=== PATIENT | female | born 1960 | race African-American/Black ===

== ENCOUNTER 2018-01-21 09:53 | Inpatient (IN) | payer MEDICARE, MEDICAID ==
[2018-01-21] VITALS (39 sets, daily range): BP systolic 93–187; BP diastolic 58–106
[~2018-01-21] VITALS: Ht 167.6 cm; Wt 79.4 kg
[~2018-01-21 09:53] MED LIST: ZOLOF; [UNRECOGNIZED DRUG - OTHER]; [UNRECOGNIZED DRUG - OTHER]; norvas
[2018-01-21] MEDS ORDERED: AZITHROMYCIN 500 MG in DEXT 5% WATER 250 ML IV STA (10:09)
[2018-01-21] MEDS ORDERED: CEFTRIAXONE 1 G PREMIX 50 ML IV ONE (10:15)
[2018-01-21] MEDS ORDERED: SODIUM CHLORIDE 0.9% 1,000 ML IV ONE ×2 (10:15)
[2018-01-21] MEDS ORDERED: AZITHROMYCIN 500 MG in SODIUM CHLORIDE 0.9% 250 ML IV STA (10:47)
[2018-01-21 10:50] LABS: HEMATOCRIT. 42.7 % (36.0-48.0); HEMOGLOBIN. 13.4 g/dL (12.0-16.0); MEAN CORPUSCULAR VOLUME 95.8 fL (81.0-99.0); MEAN PLATELET VOLUME 10.4 fl (7.4-10.4); PLATELET 229 x1000/uL (130-400); RED BLOOD CELL COUNT 4.46 mill/uL (4.2-5.4); RED CELL DISTRIBUTION WIDTH 13.9 % (11.6-14.6)
[2018-01-21 11:28] LABS: D-DIMER 3.36 mg/L FEU (<0.50); INR 1.2; PLATELET ESTIMATE NORMAL; PROTHROMBIN TIME 12.1 sec (9.4-11.6)
[2018-01-21 11:32] LABS: CHLORIDE 101 mEq/L (98-107)
[2018-01-21] MEDS ORDERED: INSULIN REGULAR (DRIP) 100 UNITS in SODIUM CHLORIDE 0.9% 99 ML IV ONE ×2 (11:39→12:00)
[2018-01-21 11:40] LABS: HCG SCREEN NEGATIVE
[2018-01-21 12:32] LABS: CHLORIDE 110 mEq/L (98-107)
[2018-01-21 14:25] LABS: CHLORIDE 111 mEq/L (98-107)
[2018-01-21] MEDS ORDERED: IPRATROPIUM/ALBUTEROL 0.5-3(2.5)MG/3ML NEB INH PRN (15:00)
[2018-01-21] MEDS ORDERED: DEXTROSE 50% WATER 50ML SYRINGE IV PRN ×2 (15:00)
[2018-01-21] MEDS ORDERED: SODIUM BICARBONATE 8.4% 1 MEQ/ML 50ML SYR IV SCH (15:00)
[2018-01-21] MEDS: BLOOD SUGAR DIAGNOSTIC STRIP TEST SCH ×9 (15:11→23:57)
[2018-01-21] MEDS: INSULIN REGULAR (DRIP) 100 UNITS in SODIUM CHLORIDE 0.9% 99 ML IV SCH (15:13)
[2018-01-21] MEDS: SODIUM CHLORIDE 0.9% 1,000 ML IV SCH (15:44)
[2018-01-21] MEDS: ENOXAPARIN 40MG/0.4ML SYR SUBCUT SCH (15:45)
[2018-01-21] MEDS ORDERED: LEVOFLOXACIN 500MG PREMIX 100 ML IV SCH (16:00)
[2018-01-21 16:24] LABS: CLARITY URINE CLOUDY (CLEAR); COLOR URINE YELLOW (YELLOW); KETONES URINE 4+ (NEGATIVE); LEUKOCYTE ESTERASE URINE NEGATIVE (NEGATIVE); NITRITE URINE NEGATIVE (NEGATIVE); OCCULT BLOOD URINE 1+ (NEGATIVE); PROTEIN URINE 2+ (NEGATIVE); SPECIFIC GRAVITY URINE 1.021 (1.005-1.030); UROBILINOGEN URINE 0.2 E.U./dL (0.2-1.0)
[2018-01-21 16:41] LABS: *AMPHETAMINES SCREEN URINE NEGATIVE (NEGATIVE); *BARBITURATES SCREEN URINE NEGATIVE (NEGATIVE); *BENZODIAZEPINES SCREEN URINE NEGATIVE (NEGATIVE); *COCAINE SCREEN URINE NEGATIVE (NEGATIVE); METHADONE URINE SCREEN NEGATIVE (NEGATIVE); OPIATES URINE SCREEN NEGATIVE (NEGATIVE)
[2018-01-21 16:42] LABS: CANNABINOID URINE SCREEN NEGATIVE (NEGATIVE); PHENCYCLIDINE URINE SCREEN NEGATIVE (NEGATIVE)
[2018-01-21 17:02] LABS: BG CARBOXYHEMOGLOBIN 0.6 % (0.5-1.5); BG DEOXYHEMOGLOBIN 9.7 % (0.0-5.0); BG FRACTION INSPIRED OXYGEN 21; BG HCO3 ACT 12.5 mmol/L (22.0-26.0); BG METHEMOGLOBIN 0.2 % (0.0-1.5); BG OXYGEN SATURATION 90.2 % (92.0-98.5); BG OXYHEMOGLOBIN 89.5 % (94.0-97.0); BG PH 7.353 (7.350-7.450); BG PO2 50.8 mmHg (75.0-100.0); BG SAMPLE SITE LEFT RADIAL; BG TOTAL HEMOGLOBIN 13.2 g/dL (12.0-18.0); BG VENT MODE ROOM AIR
[2018-01-21] MEDS: CLONIDINE 0.1MG TABLET PO PRN (18:03)
[2018-01-21 18:10] LABS: PHOSPHORUS 1.7 mg/dL (2.5-4.9)
[2018-01-21] MEDS ORDERED: AZITHROMYCIN 500 MG in DEXT 5% WATER 250 ML IV SCH (20:00)
[2018-01-21] MEDS ORDERED: IBUPROFEN 200MG TABLET PO PRN (20:00)
[2018-01-21] MEDS ORDERED: VANCOMYCIN 1,250 MG in SODIUM CHLORIDE 0.9% 250 ML IV SCH (21:00)
[2018-01-21] MEDS: ONDANSETRON HCL 4MG/2ML VIAL IV PRN (21:32)
[2018-01-21] MEDS ORDERED: AZITHROMYCIN 500 MG in SODIUM CHLORIDE 0.9% 250 ML IV SCH (23:00)
[2018-01-22] VITALS (31 sets, daily range): BP systolic 85–180; BP diastolic 58–123
[2018-01-22] MEDS ORDERED: SODIUM CHLORIDE IV ONE ×2
[2018-01-22] MEDS ORDERED: SODIUM PHOS M BASIC D BASIC IV ONE ×2
[2018-01-22] MEDS: BLOOD SUGAR DIAGNOSTIC STRIP TEST SCH ×11 (00:03→21:20)
[2018-01-22] MEDS: IPRATROPIUM/ALBUTEROL 0.5-3(2.5)MG/3ML NEB HHN SCH ×5 (00:05→19:49)
[2018-01-22 05:40] LABS: HEMATOCRIT. 34.7 % (36.0-48.0); HEMOGLOBIN. 11.6 g/dL (12.0-16.0); MEAN CORPUSCULAR HEMOGLOBIN 29.7 pg (28.0-32.0); MEAN CORPUSCULAR VOLUME 89.2 fL (81.0-99.0); MEAN PLATELET VOLUME 11.1 fl (7.4-10.4); PLATELET 148 x1000/uL (130-400); RED BLOOD CELL COUNT 3.89 mill/uL (4.2-5.4); RED CELL DISTRIBUTION WIDTH 12.9 % (11.6-14.6)
[2018-01-22] MEDS: VANCOMYCIN 750 MG PREMIX 150 ML IV SCH ×3 (05:40→21:17)
[2018-01-22 06:12] LABS: CHLORIDE 117 mEq/L (98-107)
[2018-01-22 06:24] LABS: CREATINE KINASE 42 IU/L (26-192); CREATINE KINASE MB FRACTION 1.1 ng/mL (0.5-3.6); PHOSPHORUS 2.5 mg/dL (2.5-4.9)
[2018-01-22] MEDS: INSULIN REGULAR (DRIP) 100 UNITS in SODIUM CHLORIDE 0.9% 99 ML IV SCH (06:24)
[2018-01-22] MEDS ORDERED: DEXTROSE 50% WATER 50ML SYRINGE IV PRN (07:30)
[2018-01-22] MEDS: SODIUM CHLORIDE 0.9% 1,000 ML IV SCH (08:10)
[2018-01-22] MEDS ORDERED: IPRATROPIUM/ALBUTEROL 0.5-3(2.5)MG/3ML NEB HHN PRN (08:15)
[2018-01-22] MEDS: ONDANSETRON HCL 4MG/2ML VIAL IV PRN ×3 (08:38→18:52)
[2018-01-22] MEDS: IBUPROFEN 200MG TABLET PO PRN ×2 (08:39→18:51)
[2018-01-22] MEDS ORDERED: POTASSIUM CHLORIDE INJ 60 MEQ in SODIUM CHLORIDE 0.9% 500 ML IV SCH (09:00)
[2018-01-22 09:07] LABS: BG BASE EXCESS -9.4 mmol/L (-2.0-2.0); BG CARBOXYHEMOGLOBIN 0.3 % (0.5-1.5); BG DEOXYHEMOGLOBIN 5.4 % (0.0-5.0); BG FRACTION INSPIRED OXYGEN 36; BG HCO3 ACT 14.1 mmol/L (22.0-26.0); BG METHEMOGLOBIN 0.2 % (0.0-1.5); BG OXYGEN SATURATION 94.6 % (92.0-98.5); BG OXYHEMOGLOBIN 94.1 % (94.0-97.0); BG PCO2 24.6 mmHg (35.0-45.0); BG PH 7.376 (7.350-7.450); BG PO2 68.7 mmHg (75.0-100.0); BG SAMPLE SITE RIGHT BRACHIAL; BG VENT MODE NASAL CANNULA
[2018-01-22] MEDS: THROAT LOZENGES-BENZOCAINE/MENTH/CETYLPYRD CL LOZENGES MM PRN ×2 (09:57→14:22)
[2018-01-22] MEDS: AMLODIPINE 5MG TABLET PO SCH (09:57)
[2018-01-22] MEDS: INSULIN GLARGINE UD 100 UNITS/ML SYR SUBCUT SCH (09:58)
[2018-01-22] MEDS ORDERED: INSULIN GLARGINE UD 100 UNITS/ML SYR SUBCUT SCH (10:00)
[2018-01-22 10:47] LABS: PLATELET ESTIMATE NORMAL
[2018-01-22] MEDS: INSULIN LISPRO 100 UNITS/ML SUBCUT SCH ×3 (12:41→21:40)
[2018-01-22] MEDS: BUDESONIDE 0.5MG/2ML NEB HHN SCH ×2 (12:49→19:51)
[2018-01-22] MEDS: ENOXAPARIN 40MG/0.4ML SYR SUBCUT SCH (14:22)
[2018-01-22] MEDS: CLONIDINE 0.1MG TABLET PO PRN (18:36)
[2018-01-22] MEDS: AZITHROMYCIN 500 MG in SODIUM CHLORIDE 0.45% 250 ML IV SCH (23:01)
[2018-01-23] VITALS (16 sets, daily range): BP systolic 120–167; BP diastolic 42–126
[2018-01-23] MEDS: IPRATROPIUM/ALBUTEROL 0.5-3(2.5)MG/3ML NEB HHN SCH ×6 (00:38→21:01)
[2018-01-23] MEDS: PHENOL/SODIUM PHENOLATE 1.4% SRPAY 177ML MM PRN ×2 (01:41→09:37)
[2018-01-23] MEDS: SODIUM CHLORIDE 0.9% 1,000 ML IV SCH ×2 (01:43→23:28)
[2018-01-23] MEDS: VANCOMYCIN 750 MG PREMIX 150 ML IV SCH ×2 (04:38→12:17)
[2018-01-23] MEDS: IBUPROFEN 200MG TABLET PO PRN ×2 (05:11→17:10)
[2018-01-23 06:25] LABS: HEMATOCRIT. 33.8 % (36.0-48.0); HEMOGLOBIN. 11.1 g/dL (12.0-16.0); MEAN CORPUSCULAR HEMOGLOBIN 29.3 pg (28.0-32.0); MEAN CORPUSCULAR VOLUME 89.1 fL (81.0-99.0); MEAN PLATELET VOLUME 11.1 fl (7.4-10.4); PLATELET 142 x1000/uL (130-400); RED BLOOD CELL COUNT 3.79 mill/uL (4.2-5.4); RED CELL DISTRIBUTION WIDTH 13.4 % (11.6-14.6)
[2018-01-23 06:40] LABS: CHLORIDE 113 mEq/L (98-107)
[2018-01-23 07:01] LABS: HDL CHOLESTEROL 9 mg/dL (40-59); LDL CHOLESTEROL 26 mg/dL (5-100); PHOSPHORUS 1.2 mg/dL (2.5-4.9); T4 FREE 1.17 ng/dL (0.76-1.46)
[2018-01-23] MEDS: BLOOD SUGAR DIAGNOSTIC STRIP TEST SCH ×4 (07:30→21:32)
[2018-01-23] MEDS: BUDESONIDE 0.5MG/2ML NEB HHN SCH ×2 (07:41→21:00)
[2018-01-23] MEDS: INSULIN LISPRO 100 UNITS/ML SUBCUT SCH ×7 (08:22→21:00)
[2018-01-23] MEDS: AMLODIPINE 5MG TABLET PO SCH (08:25)
[2018-01-23] MEDS: INSULIN GLARGINE UD 100 UNITS/ML SYR SUBCUT SCH (09:36)
[2018-01-23] MEDS ORDERED: POTASSIUM PHOS,M-BASIC-D-BASIC 15 MMOL in DEXT 5% WATER 245 ML IV SCH (11:00)
[2018-01-23] MEDS: CITRIC ACID/SODIUM CITRATE SOLN 15ML UDC PO SCH ×2 (12:02→17:23)
[2018-01-23 14:04] LABS: PLATELET ESTIMATE NORMAL
[2018-01-23] MEDS: ENOXAPARIN 40MG/0.4ML SYR SUBCUT SCH (14:05)
[2018-01-23] MEDS: MORPHINE SULFATE 4 MG/ML CPJ (NOT FOR IM USE) IV PRN ×2 (17:43→22:44)
[2018-01-23] MEDS: AZITHROMYCIN 500 MG in SODIUM CHLORIDE 0.45% 250 ML IV SCH (21:32)
[2018-01-23] MEDS: GUAIFENESIN 600MG ER TABLET PO SCH (21:32)
[2018-01-24] VITALS (17 sets, daily range): BP systolic 128–162; BP diastolic 62–96
[2018-01-24] MEDS: PHENOL/SODIUM PHENOLATE 1.4% SRPAY 177ML MM PRN (00:07)
[2018-01-24] MEDS: INSULIN GLARGINE UD 100 UNITS/ML SYR SUBCUT SCH ×2 (00:08→22:02)
[2018-01-24] MEDS: MORPHINE SULFATE 4 MG/ML CPJ (NOT FOR IM USE) IV PRN ×3 (04:47→19:09)
[2018-01-24] MEDS: VANCOMYCIN 750 MG PREMIX 150 ML IV SCH ×2 (05:10→17:36)
[2018-01-24 06:34] LABS: HEMATOCRIT. 30.4 % (36.0-48.0); HEMOGLOBIN. 10.4 g/dL (12.0-16.0); MEAN CORPUSCULAR HEMOGLOBIN 29.8 pg (28.0-32.0); MEAN CORPUSCULAR VOLUME 87.3 fL (81.0-99.0); MEAN PLATELET VOLUME 10.6 fl (7.4-10.4); PLATELET 142 x1000/uL (130-400); RED BLOOD CELL COUNT 3.48 mill/uL (4.2-5.4); RED CELL DISTRIBUTION WIDTH 13.2 % (11.6-14.6)
[2018-01-24 06:53] LABS: CHLORIDE 112 mEq/L (98-107)
[2018-01-24 07:10] LABS: PHOSPHORUS 1.6 mg/dL (2.5-4.9)
[2018-01-24] MEDS ORDERED: INSULIN LISPRO 100 UNITS/ML SUBCUT SCH (07:30)
[2018-01-24] MEDS: INSULIN LISPRO (LOW DOSE) 100 UNITS/ML SUBCUT SCH ×3 (07:30→17:27)
[2018-01-24] MEDS: BLOOD SUGAR DIAGNOSTIC STRIP TEST SCH ×4 (07:30→21:56)
[2018-01-24] MEDS: GUAIFENESIN 600MG ER TABLET PO SCH ×2 (08:32→21:58)
[2018-01-24] MEDS: AMLODIPINE 5MG TABLET PO SCH (08:33)
[2018-01-24] MEDS: INSULIN LISPRO 100 UNITS/ML SUBCUT SCH ×3 (08:38→17:43)
[2018-01-24] MEDS: IPRATROPIUM/ALBUTEROL 0.5-3(2.5)MG/3ML NEB HHN SCH ×4 (08:38→20:15)
[2018-01-24] MEDS: BUDESONIDE 0.5MG/2ML NEB HHN SCH ×2 (08:38→20:15)
[2018-01-24] MEDS ORDERED: POTASSIUM CHLORIDE 20MEQ/PACKET PO NR (08:45)
[2018-01-24] MEDS ORDERED: POTASSIUM PHOS,M-BASIC-D-BASIC 15 MMOL in DEXT 5% WATER 245 ML IV NR (10:00)
[2018-01-24 13:10] LABS: MICROALBUMIN RANDOM URINE 54.8 ug/mL (Not Estab.)
[2018-01-24 14:21] LABS: PLATELET ESTIMATE NORMAL
[2018-01-24] MEDS: ENOXAPARIN 40MG/0.4ML SYR SUBCUT SCH (14:47)
[2018-01-24] MEDS: CITRIC ACID/SODIUM CITRATE SOLN 15ML UDC PO SCH (17:41)
[2018-01-24] MEDS: AZITHROMYCIN 500 MG in SODIUM CHLORIDE 0.45% 250 ML IV SCH (21:54)
[2018-01-24] MEDS: IBUPROFEN 200MG TABLET PO PRN (23:47)
[2018-01-25] VITALS (10 sets, daily range): BP systolic 119–162; BP diastolic 58–111
[2018-01-25] MEDS: IPRATROPIUM/ALBUTEROL 0.5-3(2.5)MG/3ML NEB HHN SCH ×7 (00:27→23:49)
[2018-01-25] MEDS: MORPHINE SULFATE 4 MG/ML CPJ (NOT FOR IM USE) IV PRN ×4 (01:07→19:54)
[2018-01-25] MEDS: VANCOMYCIN 750 MG PREMIX 150 ML IV SCH ×2 (06:18→17:21)
[2018-01-25] MEDS: SODIUM CHLORIDE 0.9% 1,000 ML IV SCH (06:23)
[2018-01-25] MEDS: INSULIN LISPRO (LOW DOSE) 100 UNITS/ML SUBCUT SCH ×3 (07:30→17:18)
[2018-01-25 07:53] LABS: HEMATOCRIT. 27.5 % (36.0-48.0); HEMOGLOBIN. 9.4 g/dL (12.0-16.0); MEAN CORPUSCULAR HEMOGLOBIN 29.6 pg (28.0-32.0); MEAN CORPUSCULAR VOLUME 86.2 fL (81.0-99.0); MEAN PLATELET VOLUME 10.1 fl (7.4-10.4); PLATELET 133 x1000/uL (130-400); RED BLOOD CELL COUNT 3.19 mill/uL (4.2-5.4); RED CELL DISTRIBUTION WIDTH 13.3 % (11.6-14.6)
[2018-01-25 07:54] LABS: CHLORIDE 109 mEq/L (98-107)
[2018-01-25] MEDS: BLOOD SUGAR DIAGNOSTIC STRIP TEST SCH ×4 (08:02→20:04)
[2018-01-25 08:08] LABS: PHOSPHORUS 3.1 mg/dL (2.5-4.9)
[2018-01-25] MEDS: BUDESONIDE 0.5MG/2ML NEB HHN SCH ×2 (08:13→08:30)
[2018-01-25] MEDS: CITRIC ACID/SODIUM CITRATE SOLN 15ML UDC PO SCH (08:27)
[2018-01-25] MEDS: INSULIN LISPRO 100 UNITS/ML SUBCUT SCH ×3 (08:27→17:25)
[2018-01-25] MEDS: GUAIFENESIN 600MG ER TABLET PO SCH ×2 (08:27→20:03)
[2018-01-25] MEDS: AMLODIPINE 5MG TABLET PO SCH (08:28)
[2018-01-25 09:07] LABS: A/G RATIO 0.5 (0.7-1.7); ALBUMIN 1.7 g/dL (2.9-4.4); ALPHA-1-GLOBULIN 0.4 g/dL (0.0-0.4); BETA GLOBULIN 0.7 g/dL (0.7-1.3); FOLICLE STIMULATING HORMONE 8.4 mIU/mL (.); GLOBULIN TOTAL 3.2 g/dL (2.2-3.9); LUTEINIZING HORMONE 0.9 mIU/mL (.); M-SPIKE 0.7 g/dL (Not Observed); TOTAL PROTEIN SERUM 4.9 g/dL (6.0-8.5)
[2018-01-25 10:15] LABS: PLATELET ESTIMATE NORMAL
[2018-01-25] MEDS ORDERED: POTASSIUM CHLORIDE 20MEQ/PACKET PO NR (10:15)
[2018-01-25] MEDS: CLONIDINE 0.1MG TABLET PO PRN (10:55)
[2018-01-25 11:05] LABS: TOTAL IRON BINDING CAPACITY 95 ug/dL (250-450)
[2018-01-25] MEDS ORDERED: KCL 20MEQ/100ML PREMIX 100 ML IV NR (12:00)
[2018-01-25] MEDS: ENOXAPARIN 40MG/0.4ML SYR SUBCUT SCH (13:54)
[2018-01-25] MEDS ORDERED: AZITHROMYCIN 500 MG in DEXT 5% WATER 250 ML IV SCH (21:00)
[2018-01-25] MEDS: INSULIN GLARGINE UD 100 UNITS/ML SYR SUBCUT SCH (21:17)
[2018-01-26] VITALS (7 sets, daily range): BP systolic 142–156; BP diastolic 81–99
[2018-01-26] MEDS: ONDANSETRON HCL 4MG/2ML VIAL IV PRN ×3 (01:56→13:47)
[2018-01-26] MEDS: MORPHINE SULFATE 4 MG/ML CPJ (NOT FOR IM USE) IV PRN ×4 (01:58→20:48)
[2018-01-26] MEDS: IPRATROPIUM/ALBUTEROL 0.5-3(2.5)MG/3ML NEB HHN SCH ×4 (04:00→21:23)
[2018-01-26] MEDS: VANCOMYCIN 750 MG PREMIX 150 ML IV SCH ×2 (05:23→17:33)
[2018-01-26 06:06] LABS: CHLORIDE 107 mEq/L (98-107)
[2018-01-26 07:11] LABS: HEMATOCRIT. 25.5 % (36.0-48.0); HEMOGLOBIN. 8.7 g/dL (12.0-16.0); MEAN CORPUSCULAR HEMOGLOBIN 29.5 pg (28.0-32.0); MEAN CORPUSCULAR VOLUME 86.2 fL (81.0-99.0); MEAN PLATELET VOLUME 9.6 fl (7.4-10.4); PLATELET 143 x1000/uL (130-400); RED BLOOD CELL COUNT 2.95 mill/uL (4.2-5.4); RED CELL DISTRIBUTION WIDTH 13.4 % (11.6-14.6)
[2018-01-26] MEDS: BLOOD SUGAR DIAGNOSTIC STRIP TEST SCH ×4 (08:17→20:46)
[2018-01-26] MEDS: AMLODIPINE 5MG TABLET PO SCH (08:17)
[2018-01-26] MEDS: GUAIFENESIN 600MG ER TABLET PO SCH ×2 (08:17→20:47)
[2018-01-26] MEDS: INSULIN LISPRO 100 UNITS/ML SUBCUT SCH ×3 (08:31→17:42)
[2018-01-26] MEDS: INSULIN LISPRO (LOW DOSE) 100 UNITS/ML SUBCUT SCH ×3 (08:33→17:41)
[2018-01-26] MEDS ORDERED: POTASSIUM CHLORIDE 10MEQ TABLET SR PO NR (10:00)
[2018-01-26] MEDS: PANTOPRAZOLE SODIUM 40 MG/VIAL IV SCH (11:04)
[2018-01-26] MEDS: LEVOFLOXACIN 500MG PREMIX 100 ML IV SCH (12:23)
[2018-01-26 13:13] LABS: ATYPICAL LYMPHOCYTES 1; PLATELET ESTIMATE NORMAL
[2018-01-26] MEDS: ENOXAPARIN 40MG/0.4ML SYR SUBCUT SCH (14:31)
[2018-01-26] MEDS ORDERED: IOHEXOL-350 100 ML BOTTLE ONE (16:36)
[2018-01-26 18:27] LABS: HEMATOCRIT 24.5 % (36.0-48.0); HEMOGLOBIN 8.7 g/dL (12.0-16.0)
[2018-01-26] MEDS: INSULIN GLARGINE UD 100 UNITS/ML SYR SUBCUT SCH (22:00)
[2018-01-27] VITALS (11 sets, daily range): BP systolic 131–161; BP diastolic 75–99
[2018-01-27] MEDS: IPRATROPIUM/ALBUTEROL 0.5-3(2.5)MG/3ML NEB HHN SCH ×6 (01:28→20:08)
[2018-01-27] MEDS: ONDANSETRON HCL 4MG/2ML VIAL IV PRN (02:11)
[2018-01-27] MEDS: MORPHINE SULFATE 4 MG/ML CPJ (NOT FOR IM USE) IV PRN ×4 (02:52→21:46)
[2018-01-27 07:09] LABS: CHLORIDE 104 mEq/L (98-107)
[2018-01-27 07:15] LABS: PHOSPHORUS 3.2 mg/dL (2.5-4.9)
[2018-01-27] MEDS: VANCOMYCIN 750 MG PREMIX 150 ML IV SCH ×2 (07:21→17:54)
[2018-01-27] MEDS: INSULIN LISPRO (LOW DOSE) 100 UNITS/ML SUBCUT SCH ×3 (07:30→17:13)
[2018-01-27] MEDS: BLOOD SUGAR DIAGNOSTIC STRIP TEST SCH ×4 (07:30→21:39)
[2018-01-27] MEDS ORDERED: PROMETHAZINE/DEXTROMETHORPHAN 6.25-15MG/5ML BOTTLE 120ML PO PRN (08:30)
[2018-01-27] MEDS ORDERED: POTASSIUM CHLORIDE 20MEQ/PACKET PO NR (08:30)
[2018-01-27] MEDS: AMLODIPINE 5MG TABLET PO SCH (08:35)
[2018-01-27] MEDS: GUAIFENESIN 600MG ER TABLET PO SCH ×2 (08:35→21:44)
[2018-01-27] MEDS: PANTOPRAZOLE SODIUM 40 MG/VIAL IV SCH (08:35)
[2018-01-27] MEDS: INSULIN LISPRO 100 UNITS/ML SUBCUT SCH ×3 (08:43→17:57)
[2018-01-27 09:53] LABS: HEMATOCRIT. 22.9 % (36.0-48.0); MEAN CORPUSCULAR HEMOGLOBIN 31.5 pg (28.0-32.0); MEAN CORPUSCULAR VOLUME 90.4 fL (81.0-99.0); MEAN PLATELET VOLUME 8.2 fl (7.4-10.4); PLATELET 176 x1000/uL (130-400); RED BLOOD CELL COUNT 2.53 mill/uL (4.2-5.4); RED CELL DISTRIBUTION WIDTH 13.3 % (11.6-14.6)
[2018-01-27] MEDS: LEVOFLOXACIN 500MG PREMIX 100 ML IV SCH (12:25)
[2018-01-27 13:02] LABS: PLATELET ESTIMATE NORMAL
[2018-01-27] MEDS ORDERED: LACTULOSE 20G/30ML UDC PO NR (15:28)
[2018-01-27] MEDS: LACTULOSE 20G/30ML UDC PO SCH (21:00)
[2018-01-27] MEDS ORDERED: INSULIN GLARGINE UD 100 UNITS/ML SYR SUBCUT SCH ×2 (22:00→23:00)
[2018-01-28] VITALS (11 sets, daily range): BP systolic 131–184; BP diastolic 76–111
[2018-01-28] MEDS: IPRATROPIUM/ALBUTEROL 0.5-3(2.5)MG/3ML NEB HHN SCH ×5 (04:12→15:29)
[2018-01-28] MEDS: MORPHINE SULFATE 4 MG/ML CPJ (NOT FOR IM USE) IV PRN ×3 (04:34→16:02)
[2018-01-28] MEDS: VANCOMYCIN 750 MG PREMIX 150 ML IV SCH ×2 (05:25→17:55)
[2018-01-28] MEDS: LACTULOSE 20G/30ML UDC PO SCH ×4 (05:26→21:52)
[2018-01-28 07:17] LABS: CHLORIDE 104 mEq/L (98-107)
[2018-01-28] MEDS: INSULIN LISPRO (LOW DOSE) 100 UNITS/ML SUBCUT SCH ×3 (07:30→19:08)
[2018-01-28] MEDS: INSULIN LISPRO 100 UNITS/ML SUBCUT SCH ×3 (07:30→19:09)
[2018-01-28 07:32] LABS: PHOSPHORUS 3.9 mg/dL (2.5-4.9)
[2018-01-28] MEDS: BLOOD SUGAR DIAGNOSTIC STRIP TEST SCH ×4 (08:00→21:52)
[2018-01-28 08:10] LABS: HEMATOCRIT. 25.1 % (36.0-48.0); HEMOGLOBIN. 8.4 g/dL (12.0-16.0); MEAN CORPUSCULAR HEMOGLOBIN 29.9 pg (28.0-32.0); MEAN CORPUSCULAR VOLUME 89.1 fL (81.0-99.0); MEAN PLATELET VOLUME 8.9 fl (7.4-10.4); PLATELET 136 x1000/uL (130-400); RED BLOOD CELL COUNT 2.81 mill/uL (4.2-5.4); RED CELL DISTRIBUTION WIDTH 14.1 % (11.6-14.6)
[2018-01-28] MEDS ORDERED: POTASSIUM CHLORIDE 20MEQ/PACKET PO SCH (08:15)
[2018-01-28] MEDS ORDERED: FAMOTIDINE 20MG TABLET PO SCH (09:00)
[2018-01-28] MEDS: PANTOPRAZOLE SODIUM 40 MG/VIAL IV SCH (09:41)
[2018-01-28] MEDS: GUAIFENESIN 600MG ER TABLET PO SCH ×2 (09:41→21:51)
[2018-01-28] MEDS: AMLODIPINE 5MG TABLET PO SCH (09:41)
[2018-01-28] MEDS: DOCUSATE SODIUM 250MG CAPSULE PO PRN (09:41)
[2018-01-28] MEDS: ONDANSETRON HCL 4MG/2ML VIAL IV PRN ×2 (09:41→16:06)
[2018-01-28] MEDS ORDERED: PROPOFOL 200MG/20ML VIAL IV ONE (11:12)
[2018-01-28] MEDS ORDERED: MIDAZOLAM HCL 2 MG/2 ML VIAL ONE (11:12)
[2018-01-28] MEDS ORDERED: DIPHENHYDRAMINE 50MG/ML VIAL ONE (11:12)
[2018-01-28] MEDS ORDERED: FENTANYL CITRATE/PF 50MCG/ML 2ML VIAL ONE (11:12)
[2018-01-28] MEDS ORDERED: LIDOCAINE HCL/PF 1% 10 MG/ML 5ML VIAL ONE (11:13)
[2018-01-28 12:10] LABS: ATYPICAL LYMPHOCYTES 1
[2018-01-28 12:11] LABS: PLATELET ESTIMATE NORMAL
[2018-01-28] MEDS: LEVOFLOXACIN 500MG PREMIX 100 ML IV SCH (13:51)
[2018-01-28] MEDS: HYDROCODONE/ACETAMINOPHEN 5/325MG TABLET PO PRN (21:51)
[2018-01-28] MEDS ORDERED: INSULIN GLARGINE UD 100 UNITS/ML SYR SUBCUT SCH (22:00)
[2018-01-29] VITALS: BP 126/72
[2018-01-29] MEDS: IPRATROPIUM/ALBUTEROL 0.5-3(2.5)MG/3ML NEB HHN SCH ×6 (01:38→20:00)
[2018-01-29 04:00] VITALS: BP 150/80
[2018-01-29] MEDS: ONDANSETRON HCL 4MG/2ML VIAL IV PRN (04:22)
[2018-01-29] MEDS: HYDROCODONE/ACETAMINOPHEN 5/325MG TABLET PO PRN ×2 (04:22→15:10)
[2018-01-29] MEDS: VANCOMYCIN 750 MG PREMIX 150 ML IV SCH ×2 (04:23→17:22)
[2018-01-29] MEDS: LACTULOSE 20G/30ML UDC PO SCH ×3 (04:30→17:32)
[2018-01-29] MEDS: BLOOD SUGAR DIAGNOSTIC STRIP TEST SCH ×3 (06:47→17:19)
[2018-01-29] MEDS: INSULIN LISPRO (LOW DOSE) 100 UNITS/ML SUBCUT SCH ×3 (06:49→17:20)
[2018-01-29] MEDS: INSULIN LISPRO 100 UNITS/ML SUBCUT SCH ×3 (06:54→18:56)
[2018-01-29 07:12] LABS: CHLORIDE 108 mEq/L (98-107); HEMATOCRIT. 24.3 % (36.0-48.0); HEMOGLOBIN. 8.1 g/dL (12.0-16.0); MEAN CORPUSCULAR VOLUME 89.7 fL (81.0-99.0); MEAN PLATELET VOLUME 8.9 fl (7.4-10.4); PHOSPHORUS 3.5 mg/dL (2.5-4.9); PLATELET 109 x1000/uL (130-400); RED BLOOD CELL COUNT 2.71 mill/uL (4.2-5.4); RED CELL DISTRIBUTION WIDTH 13.7 % (11.6-14.6)
[2018-01-29 07:14] VITALS: BP 154/76
[2018-01-29] MEDS: DOCUSATE SODIUM 250MG CAPSULE PO PRN (08:35)
[2018-01-29] MEDS: GUAIFENESIN 600MG ER TABLET PO SCH (08:35)
[2018-01-29] MEDS: PANTOPRAZOLE SODIUM 40 MG/VIAL IV SCH (08:35)
[2018-01-29] MEDS: AMLODIPINE 5MG TABLET PO SCH (08:35)
[2018-01-29] MEDS ORDERED: MAGNESIUM/ALUMINUM HYDROXIDE/SIMETHICONE 30ML UDC PO PRN (10:30)
[2018-01-29] MEDS ORDERED: BISACODYL 5MG TABLET PO NR (10:30)
[2018-01-29] MEDS ORDERED: NA PHOS,M-B/NA PHOS,DI-BA ENEMA 118ML PR NR (10:30)
[2018-01-29] MEDS ORDERED: POTASSIUM CHLORIDE 20MEQ/PACKET PO NR (10:30)
[2018-01-29 11:32] VITALS: BP 131/77
[2018-01-29] MEDS ORDERED: POTASSIUM CHLORIDE 20MEQ TABLET SR PO NR (12:00)
[2018-01-29] MEDS: LEVOFLOXACIN 500MG PREMIX 100 ML IV SCH (12:20)
[2018-01-29 15:36] LABS: PLATELET ESTIMATE SLIGHTLY DECREASED
[2018-01-29 16:00] VITALS: BP 117/73
[2018-01-29] MEDS ORDERED: ACETYLCYSTEINE 100MG/ML 10% VIAL 4ML INH SCH (18:00)
[2018-01-29 19:11] VITALS: BP 118/73
[2018-01-30 09:09] LABS: IMMUNOGLOBULIN A 101 mg/dL (87-352); IMMUNOGLOBULIN G 1129 mg/dL (700-1600); IMMUNOGLOBULIN M 42 mg/dL (26-217)
== END 2018-01-29 22:10 | DRG 871 ==
LOC: ER 10:01 → EDBEDREQ 11:45 → EDBEDREQSVC 11:52 → EDBEDREQ 11:54 → ENRESERV 12:00 → MICUSO 12:00 → 5EST 01-22 16:28 → 6WST 01-28 16:50
PROVIDERS: ADMIT Internal Medicine Nephrology; ATTEND Internal Medicine Nephrology
PROC: 0DB68ZX Excision of Stomach, Via Natural or Artificial Opening Endoscopic, Diagnostic (ICD-10-PCS; principal; 2018-01-28 11:00)
DX: A41.9 Sepsis, unspecified organism (principal); J18.9 Pneumonia, unspecified organism; J96.00 Acute respiratory failure, unspecified whether with hypoxia or hypercapnia; E11.10 Type 2 diabetes mellitus with ketoacidosis without coma; E44.0 Moderate protein-calorie malnutrition; D69.6 Thrombocytopenia, unspecified; I82.403 Acute embolism and thrombosis of unspecified deep veins of lower extremity, bilateral; E83.39 Other disorders of phosphorus metabolism; J44.0 Chronic obstructive pulmonary disease with (acute) lower respiratory infection; E46 Unspecified protein-calorie malnutrition; I11.9 Hypertensive heart disease without heart failure; R65.20 Severe sepsis without septic shock; F17.200 Nicotine dependence, unspecified, uncomplicated; K29.60 Other gastritis without bleeding; D64.9 Anemia, unspecified; E05.00 Thyrotoxicosis with diffuse goiter without thyrotoxic crisis or storm; E78.00 Pure hypercholesterolemia, unspecified; E78.1 Pure hyperglyceridemia; E87.6 Hypokalemia; H35.00 Unspecified background retinopathy; R59.0 Localized enlarged lymph nodes; K80.20 Calculus of gallbladder without cholecystitis without obstruction; Z88.0 Allergy status to penicillin; Z88.6 Allergy status to analgesic agent; Z88.1 Allergy status to other antibiotic agents; Z68.28 Body mass index [BMI] 28.0-28.9, adult; Z91.19 Patient's noncompliance with other medical treatment and regimen
CPT/HCPCS: 36415; 36600; 71045; 71275; 80048; 80053; 80061; 80202; 80305; 81003; 82043; 82270; 82375; 82533; 82550; 82553; 82570; 82784; 82785; 82805; 82962; 83001; 83002; 83036; 83520; 83540; 83550; 83605; 83735; 83880; 84100; 84155; 84165; 84439; 84443; 84481; 84484; 84681; 84703; 85014; 85018; 85025; 85379; 85610; 86334; 87040; 87070; 87086; 87804; 88305; 88313; 93005; 93306; 93970; 94003; 94640; 94660; 96365; 96366; 96368; 96375; 97162; 97535; 99291; C9113; J0456; J0696; J1200; J1650; J1815; J1956; J2250; J2270; J2405; J2704; J3010; J3370; J3480; J3490; J7030; J7040; J7050; J7060; J7608; J7620; J7626; Q9967; A4315

== ENCOUNTER 2019-02-12 09:16 | Emergency (ER) | payer MEDICARE, MEDICAID ==
[~2019-02-12] VITALS: Ht 170.2 cm; Wt 73.0 kg
[2019-02-12] MEDS ORDERED: ACETAMINOPHEN 325MG TABLET PO STA (10:11)
[2019-02-12] MEDS ORDERED: SODIUM CHLORIDE 0.9% 1000ML BAG (SEPSIS BOLUS) IV ONE (10:15)
[2019-02-12] MEDS ORDERED: KETOROLAC 15MG/ML VIAL IV ONE (10:15)
[2019-02-12 10:45] LABS: EOSINOPHILS % 0.8 % (0.0-5.0); HEMOGLOBIN. 10.9 g/dL (12.0-16.0); LYMPHOCYTES % 11.9 % (20.0-50.0); MEAN CORPUSCULAR HEMOGLOBIN 29.2 pg (28.0-32.0); MEAN CORPUSCULAR VOLUME 88.2 fL (81.0-99.0); MEAN PLATELET VOLUME 9.3 fl (7.4-10.4); MONOCYTES % 12.4 % (2.0-8.0); NEUTROPHILS % 73.9 % (40.0-76.0); PLATELET 198 x1000/uL (130-400); RED BLOOD CELL COUNT 3.75 mill/uL (4.2-5.4); RED CELL DISTRIBUTION WIDTH 13.9 % (11.6-14.6)
[2019-02-12 10:51] LABS: CHLORIDE 97 mEq/L (98-107)
[2019-02-12 10:53] LABS: PROTHROMBIN TIME 10.5 sec (9.6-11.0)
[2019-02-12 12:59] LABS: CLARITY URINE CLOUDY (CLEAR); COLOR URINE YELLOW (YELLOW); KETONES URINE 3+ (NEGATIVE); LEUKOCYTE ESTERASE URINE NEGATIVE (NEGATIVE); NITRITE URINE NEGATIVE (NEGATIVE); OCCULT BLOOD URINE TRACE (NEGATIVE); PH URINE 5.5 (4.5-8.0); PROTEIN URINE 2+ (NEGATIVE); SPECIFIC GRAVITY URINE 1.023 (1.005-1.030)
[2019-02-12] MEDS ORDERED: LEVOFLOXACIN 750MG PREMIX 150 ML IV NR (13:30)
[2019-02-12 14:15] VITALS: BP 166/89
== END 2019-02-12 16:16 | disposition home or self-care (01) ==
LOC: ER 09:16
DX: J18.9 Pneumonia, unspecified organism (principal); D64.9 Anemia, unspecified; E87.6 Hypokalemia; N39.0 Urinary tract infection, site not specified; E11.65 Type 2 diabetes mellitus with hyperglycemia; F17.200 Nicotine dependence, unspecified, uncomplicated; I10 Essential (primary) hypertension; Z88.5 Allergy status to narcotic agent; Z88.0 Allergy status to penicillin
CPT/HCPCS: 36415; 71045; 80053; 81003; 83605; 84145; 84484; 85025; 85610; 87040; 87086; 87804; 93005; 96361; 96365; 96366; 96375; 99284; J1885; J1956; J7030